=== PATIENT | female | born 1980 | race Caucasian/White ===

== ENCOUNTER 2017-01-08 11:58 | Emergency (ER) | payer OTHER ==
[~2017-01-08 11:58] MED LIST: CEFDINIR300 MG PO; LEVAQUIN750 MG PO; NEURONTIN400 MG PO; NICODERM 21MG PA1 EA TD; PAXIL20 MG PO; PREDNISONE10 MG PO; SEROQUEL XR150 MG PO; SUBOXONE 8 MG-1 EACH SL
[2017-01-08 13:04] LABS: URINE BILIRUBIN 1+ (NEGATIVE); URINE BLOOD TRACE (NEGATIVE); URINE GLUCOSE (UA) NORMAL (NORMAL); URINE KETONE TRACE (NEGATIVE); URINE LEUKOCYTE ESTERASE 2+ (NEGATIVE); URINE NITRATE NEGATIVE (NEGATIVE); URINE PROTEIN 1+ (NEGATIVE)
[2017-01-08 13:14] LABS: URINE BACTERIA 1+ (NONE SEEN); URINE SQUAMOUS EPITHELIAL CELL 15-20 /[HPF] (NONE SEEN)
== END 2017-01-08 15:40 | disposition home or self-care (01) ==
LOC: ER 11:58
PROVIDERS: General Practice
DX: J44.9 Chronic obstructive pulmonary disease, unspecified (principal); J84.9 Interstitial pulmonary disease, unspecified; R30.0 Dysuria; R05 Cough; N39.0 Urinary tract infection, site not specified; R10.9 Unspecified abdominal pain; R59.0 Localized enlarged lymph nodes; Z99.81 Dependence on supplemental oxygen; F11.20 Opioid dependence, uncomplicated; Z86.718 Personal history of other venous thrombosis and embolism; I10 Essential (primary) hypertension; Z79.899 Other long term (current) drug therapy; Z88.1 Allergy status to other antibiotic agents; Z91.040 Latex allergy status; F17.210 Nicotine dependence, cigarettes, uncomplicated
CPT/HCPCS: 36415; 71020; 71250; 81001; 86308; 87400; 94664; 96372; 99070; 99284-25; J2930

== ENCOUNTER 2017-02-01 16:06 | Observation (INO) | payer OTHER ==
[~2017-02-01] VITALS: Ht 170.2 cm; Wt 100.0 kg
[2017-02-01 17:27] LABS: BASO % 0.4 % (0.1-1.2); EOS # 0.3 10_X3_uL (0.0-0.4); EOS % 3.2 % (0.7-5.8); GRAN # 4.1 10_X3_uL (1.6-6.1); GRAN % 50.5 % (34.0-71.1); HEMATOCRIT 38.6 % (34-45); HEMOGLOBIN 13.6 g/dL (11.2-15.7); LYMPH # 3.2 10_X3_uL (1.2-3.7); LYMPH % 39.4 % (19.3-51.7); MEAN CORPUSCULAR HEMOGLOBIN 28.9 pg (27.0-33.0); MEAN CORPUSCULAR HGB CONC 35.2 g/dL (32.0-36.0); MEAN PLATELET VOLUME 10.3 fl (7.5-11.5); MONO # 0.5 10_X3_uL (0.2-0.9); MONO % 6.5 % (4.7-12.5); PLATELET COUNT 250 x10_3/uL (182-369); RED BLOOD COUNT 4.71 x10_6/uL (3.9-5.2); RED CELL DISTRIBUTION WIDTH 14.2 % (11.7-14.4)
[2017-02-01 17:41] LABS: ALBUMIN 4.1 gm/dL (3.4-5.0); BILIRUBIN,TOTAL 0.44 mg/dL (0.0-1.0); CALCIUM 9.4 mg/dL (8.7-10.7); POTASSIUM 4.5 mmol/L (3.5-5.1); TOTAL PROTEIN 7.9 gm/dL (6.4-8.2)
[2017-02-01 17:55] LABS: ARTERIAL BLD GAS O2 SATURATION 96.4 % (94-98); ARTERIAL BLOOD GAS BASE EXCESS -2.7 mmol/L (-2.0-3.0); ARTERIAL BLOOD GAS HCO3 20.6 mmol/L (22-26); ARTERIAL BLOOD GAS PCO2 32.5 mmHg (32-45); ARTERIAL BLOOD GAS pH 7.42 (7.35-7.45)
[2017-02-01 17:59] LABS: INR 1.1 (0.9-1.1); PROTHROMBIN TIME (PATIENT) 11.5 SECONDS (9.9-11.1)
[2017-02-01 18:39] LABS: URINE BILIRUBIN NEGATIVE (NEGATIVE); URINE BLOOD 2+ (NEGATIVE); URINE GLUCOSE (UA) NORMAL (NORMAL); URINE KETONE NEGATIVE (NEGATIVE); URINE LEUKOCYTE ESTERASE 2+ (NEGATIVE); URINE NITRATE NEGATIVE (NEGATIVE); URINE PROTEIN 2+ (NEGATIVE); UROBILINOGEN NORMAL mg/dL (<1.0)
[2017-02-01 18:58] LABS: URINE BACTERIA 3+ (NONE SEEN)
[2017-02-01 18:59] LABS: URINE TRICHOMONAS FEW (NONE SEEN)
[2017-02-02 07:16] LABS: HEMATOCRIT 34.9 % (34-45); HEMOGLOBIN 11.8 g/dL (11.2-15.7); MEAN CORPUSCULAR HEMOGLOBIN 28.2 pg (27.0-33.0); MEAN CORPUSCULAR HGB CONC 33.8 g/dL (32.0-36.0); MEAN CORPUSCULAR VOLUME 83.5 fL (79-95); MEAN PLATELET VOLUME 10.4 fl (7.5-11.5); RED BLOOD COUNT 4.18 x10_6/uL (3.9-5.2); RED CELL DISTRIBUTION WIDTH 14.2 % (11.7-14.4); WHITE BLOOD COUNT 4.8 x10_3/uL (4.0-10.0)
[2017-02-02 07:23] LABS: BLOOD UREA NITROGEN 13 mg/dL (7-18); CALCIUM 8.2 mg/dL (8.7-10.7); CARBON DIOXIDE 22 mmol/L (21-32); CREATININE 0.8 mg/dL (0.6-1.3); GLUCOSE,RANDOM 84 mg/dL (70-99); POTASSIUM 3.6 mmol/L (3.5-5.1); SODIUM 138 mmol/L (136-145)
[2017-02-02 10:55] LABS: ALBUMIN 3.6 gm/dL (3.4-5.0); ALKALINE PHOSPHATASE 63 U/L (50-136); ALT/SGPT 84 U/L (3.5-33.9); AST/SGOT 89 U/L (7.04-26.96); BILIRUBIN,TOTAL 0.39 mg/dL (0.0-1.0); TOTAL PROTEIN 6.9 gm/dL (6.4-8.2)
[2017-02-02 10:58] LABS: BILIRUBIN,DIRECT < 0.20 mg/dL (0.0-0.30)
[2017-02-02 13:11] LABS: URINE BILIRUBIN NEGATIVE (NEGATIVE); URINE BLOOD TRACE (NEGATIVE); URINE GLUCOSE (UA) NORMAL (NORMAL); URINE KETONE NEGATIVE (NEGATIVE); URINE LEUKOCYTE ESTERASE 2+ (NEGATIVE); URINE NITRATE NEGATIVE (NEGATIVE); URINE PROTEIN NEGATIVE (NEGATIVE); UROBILINOGEN NORMAL mg/dL (<1.0)
[2017-02-02 13:41] LABS: URINE BACTERIA FEW (NONE SEEN); URINE RBC 0-5 /[HPF] (0-2); URINE SQUAMOUS EPITHELIAL CELL 15-20 /[HPF] (NONE SEEN); URINE TRICHOMONAS FEW (NONE SEEN); URINE WBC >15 /[HPF] (0-5)
== END 2017-02-02 15:16 | disposition home or self-care (01) ==
LOC: ER 16:06 → MS 19:51
PROVIDERS: Emergency Medicine; ADMIT Family Medicine
DX: E86.0 Dehydration (principal); N28.9 Disorder of kidney and ureter, unspecified; B19.20 Unspecified viral hepatitis C without hepatic coma; R10.30 Lower abdominal pain, unspecified; R61 Generalized hyperhidrosis; R42 Dizziness and giddiness; Z86.711 Personal history of pulmonary embolism; F41.9 Anxiety disorder, unspecified; F43.9 Reaction to severe stress, unspecified; J84.10 Pulmonary fibrosis, unspecified; I10 Essential (primary) hypertension; R07.9 Chest pain, unspecified; F32.9 Major depressive disorder, single episode, unspecified; F19.90 Other psychoactive substance use, unspecified, uncomplicated; Z80.9 Family history of malignant neoplasm, unspecified; Z82.49 Family history of ischemic heart disease and other diseases of the circulatory system; Z79.899 Other long term (current) drug therapy; Z86.14 Personal history of Methicillin resistant Staphylococcus aureus infection; Z88.1 Allergy status to other antibiotic agents; Z98.51 Tubal ligation status; F17.210 Nicotine dependence, cigarettes, uncomplicated
CPT/HCPCS: 36415; 36600; 71020; 76770; 80048; 80053; 80076; 80307; 81001; 81025; 82550; 82553; 82803; 83605; 85025; 85610; 87040; 87210; 90653; 93005; 93041; 96360; 96361; 99070; 99284-25; G0378

== ENCOUNTER 2017-04-19 06:35 | Observation (INO) | payer OTHER ==
[~2017-04-19] VITALS: Ht 170.2 cm; Wt 96.0 kg
[2017-04-19 07:47] LABS: BASO % 0.1 % (0.1-1.2); EOS % 0.6 % (0.7-5.8); GRAN # 3.7 10_X3_uL (1.6-6.1); GRAN % 51.5 % (34.0-71.1); HEMATOCRIT 33.4 % (34-45); HEMOGLOBIN 11.1 g/dL (11.2-15.7); LYMPH # 3.1 10_X3_uL (1.2-3.7); LYMPH % 43.4 % (19.3-51.7); MEAN CORPUSCULAR HEMOGLOBIN 27.5 pg (27.0-33.0); MEAN CORPUSCULAR HGB CONC 33.2 g/dL (32.0-36.0); MEAN CORPUSCULAR VOLUME 82.9 fL (79-95); MEAN PLATELET VOLUME 9.7 fl (7.5-11.5); MONO # 0.3 10_X3_uL (0.2-0.9); MONO % 4.4 % (4.7-12.5); PLATELET COUNT 258 x10_3/uL (182-369); RED BLOOD COUNT 4.03 x10_6/uL (3.9-5.2); RED CELL DISTRIBUTION WIDTH 14.4 % (11.7-14.4); WHITE BLOOD COUNT 7.2 x10_3/uL (4.0-10.0)
[2017-04-19 08:02] LABS: ALBUMIN 3.2 gm/dL (3.4-5.0); ALKALINE PHOSPHATASE 58 U/L (50-136); ALT/SGPT 13 U/L (3.5-33.9); AST/SGOT 13 U/L (7.04-26.96); BLOOD UREA NITROGEN 8 mg/dL (7-18); CALCIUM 8.9 mg/dL (8.7-10.7); CARBON DIOXIDE 25 mmol/L (21-32); CREATININE 0.6 mg/dL (0.6-1.3); GLUCOSE,RANDOM 119 mg/dL (70-99); POTASSIUM 3.2 mmol/L (3.5-5.1); SODIUM 144 mmol/L (136-145)
[2017-04-19 08:07] LABS: BILIRUBIN,TOTAL < 0.15 mg/dL (0.0-1.0)
== END 2017-04-20 14:55 | disposition home or self-care (01) ==
LOC: ER 06:35 → MS 08:59
PROVIDERS: Internal Medicine; ADMIT Family Medicine
DX: J44.0 Chronic obstructive pulmonary disease with (acute) lower respiratory infection (principal); J18.9 Pneumonia, unspecified organism; S40.812A Abrasion of left upper arm, initial encounter; T22.00XA Burn of unspecified degree of shoulder and upper limb, except wrist and hand, unspecified site, initial encounter; X08.8XXA Exposure to other specified smoke, fire and flames, initial encounter; Z86.711 Personal history of pulmonary embolism; Z86.19 Personal history of other infectious and parasitic diseases; F17.210 Nicotine dependence, cigarettes, uncomplicated; Z83.3 Family history of diabetes mellitus; Z80.9 Family history of malignant neoplasm, unspecified; Z82.49 Family history of ischemic heart disease and other diseases of the circulatory system; Z79.899 Other long term (current) drug therapy
CPT/HCPCS: 36415; 71020; 80053; 83605; 83880; 85025; 85379; 86738; 87040; 87449; 94640; 94664; 96361; 96365; 96366; 96367; 96372; 96375; 96376; 99070; 99284-25; G0378; J2930